=== PATIENT | male | born 2000 | race Two or more races ===

== ENCOUNTER 2023-02-15 21:37 | Emergency (ER) | payer MEDICAID, OTHER ==
[~2023-02-15] VITALS: Ht 172.7 cm; Wt 108.9 kg
[2023-02-15 21:44] VITALS: TEMP 98.1
[2023-02-15] MEDS ORDERED: NALO1DIS2 IM (21:47)
[2023-02-15 23:09] VITALS: BP 133/72
[2023-02-15 23:30] VITALS: O2SAT 97
== END 2023-02-15 23:35 ==
LOC: ER 21:39 → EDBD 21:39 → ER 23:35
DX: R40.4 Transient alteration of awareness (principal); T40.601A Poisoning by unspecified narcotics, accidental (unintentional), initial encounter; Y92.89 Other specified places as the place of occurrence of the external cause